=== PATIENT | female | born 1990 | race American Indian/Alaskan Native ===

== ENCOUNTER 2018-01-30 13:19 | Emergency (ER) | payer MEDICAID ==
--- NOTE | 2018-01-30 16:42 | Emergency Department Report ---
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 Patient has no past medical history. Patient states chest hurts with coughing and 2 days ago she fell palpitations while at work. She is taken out the symptoms was within normal improvement of symptoms. She also complains of bilateral ear pain. Patient denies recent travel, ED Review of Systems ROS: Stated complaint: CHEST PAIN/SORE THROAT/ VOMITING Other details as noted in HPI Constitutional: denies: chills, fever ENT: ear pain (bilateral), throat pain, congestion. denies: dental pain, hearing loss, epistaxis Respiratory: cough. denies: shortness of breath, wheezing Cardiovascular: chest pain (chest pain with cough). denies: palpitations Gastrointestinal: vomiting. denies: abdominal pain, nausea, diarrhea Skin: denies: rash, lesions Neurological: denies: headache, weakness, paresthesias Psychiatric: denies: anxiety, depression ED Past Medical Hx - Past Medical History Hx Hypertension: No Hx Heart Attack/AMI: No Hx Congestive Heart Failure: No Hx Diabetes: No Hx Deep Vein Thrombosis: No Hx Renal Disease: No Hx Sickle Cell Disease: No Hx Seizures: No Hx Asthma: No Hx COPD: No Hx HIV: No - Social History Smoking Status: Never Smoker Substance Use Type: None - Medications Home Medications: Home Medications Medication Instructions Recorded Confirmed Last Taken Type Valacyclovir HCl [valACYclovir] 500 mg PO DAILY 08/28/15 08/28/15 1 Day Ago History ~08/27/15 HYDROcodone/APAP 5-325 [[employer] [facility] 1 each PO Q6HR PRN #30 tablet 08/30/15 Unknown Rx 5/325] Ibuprofen [Motrin] 800 mg PO Q8HR PRN #30 tablet 08/30/15 Unknown Rx Vit Calc,Iron,Folic 1 each PO DAILY #30 tablet 08/30/15 Unknown Rx [ Vitamins] RX: Ferrous Sulfate [Feosol 325 MG 325 mg PO BID #60 tablet 08/30/15 Unknown Rx tab] Fluticasone [Flonase] 1 spray NS QDAY #1 bottle 01/30/18 Unknown Rx RX: Amoxicillin 500 mg PO BID #20 capsule 01/30/18 Unknown Rx RX: Benzonatate [Tessalon Perle] 100 mg PO TID PRN #20 capsule 01/30/18 Unknown Rx Minor Respiratory Exam - Exam General: Vital signs noted. No distress. Alert and acting appropriately. HEENT: Yes Pharyngeal Erythema (posterior pharynx erythema), Yes Moist Mucous Membranes, Yes Rhinorrhea (turbinates mildly congested with clear discharge), No Pharyngeal Exudates (Uvula midline), No Conjuctival Injection, No Frontal Tenderness, No Maxillary Tenderness Ear: Right TM Bulge, Right TM Erythema, Right EAC Pain, Neither EAC Discharge Neck: Yes Supple, No Adenopathy Lungs: Yes Good Air Exchange, No Wheezes, No Ronchi, No Stridor, No Cough, No Labored Respirations, No Retractions, No Use of Accessory Muscles, No Other Abnormal Lung Sounds Heart: Yes Regular, No Murmur Abdomen: Yes Normal Bowel Sounds, No Tenderness, No Peritoneal Signs Skin: No Rash, No Edema Neurologic: Alert and oriented, no deficits. Musculoskeletal: Unremarkable. ED Course Vital Signs 01/30/18 13:32 Temperature 98 F Pulse Rate 88 Respiratory 20 Rate Blood Pressure 163/101 O2 Sat by Pulse 99 Oximetry Vital Signs 01/30/18 01/30/18 13:32 18:49 Temperature 98 F Pulse Rate 88 85 Respiratory 20 16 Rate Blood Pressure 163/101 Blood Pressure 151/94 [Right] O2 Sat by Pulse 99 100 Oximetry ED Medical Decision Making - Radiology Data Radiology results: pending, report reviewed interpreted by me: Janet Webb - Medical Decision Making Patient is stable and was examined by me in the emergency room. Nontoxic appearing and stable. Blood pressure elevated on arrival. Reevaluation trending down. Chest x-ray obtained and dictated by Dr. Bauer with no acute findings. Physical assessment susceptible of otitis media of right ear. Start amoxicillin, Flonase, and benzonatate. Continue taking Tylenol or ibuprofen for pain. Discussed plan with patient and she agreed with plan. Discharged home in stable condition. Follow up with PCP in 24-72 hours. Critical care attestation.: If time is entered above; I have spent that time in minutes in the direct care of this critically ill patient, excluding procedure time. ED Disposition Clinical Impression: Acute pain of both ears, Cough in adult, Asymptomatic hypertension Otitis media Qualifiers: Otitis media type: suppurative Chronicity: acute Laterality: right Recurrence: not specified as recurrent Spontaneous tympanic membrane rupture: without spontaneous rupture Qualified Code(s): H66.001 - Acute suppurative otitis media without spontaneous rupture of ear drum, right ear Disposition: TO HOME OR SELFCARE Is pt being admited?: No Does the pt Need Aspirin: No Condition: Stable Instructions: Otitis Media (ED), DASH Eating Plan (ED), Hypertension (ED) Additional Instructions: Give Tylenol or ibuprofen for pain every 6-8 hours. Take antibiotics as prescribed to avoid recurrence of the ear infection. Avoid drinking alcohol while taking antibiotics and for up to 24 hours after completion. Avoid high altitudes, may worsen the pain during ear infection. If symptoms do not improve within 2 to 3 days, then follow up with primary care provider. Prescriptions: RX: Amoxicillin 500 mg PO BID #20 capsule RX: Benzonatate [Tessalon Perle] 100 mg PO TID PRN #20 capsule PRN Reason: Cough Fluticasone [Flonase] 1 spray NS QDAY #1 bottle Referrals: [facility] [Outside] - 3-5 Days [facility] [Outside] - 3-5 Days [facility] [Outside] - 3-5 Days Forms: Work/School Release Form(ED) Time of Disposition: 18:39 Print Language: MONTENEGRIN
[2018-01-30 18:50] VITALS: BP 151/94
--- NOTE | 2018-01-30 18:55 | XRay Report ---
FINAL REPORT PROCEDURE: Chest. TECHNIQUE: Frontal and lateral views. HISTORY: Cough and chest discomfort. COMPARISON: No prior studies are available for comparison. FINDINGS: The heart and mediastinum appear normal. The lungs are clear and well expanded. There are no pleural effusions. The soft tissues and regional skeleton are unremarkable. IMPRESSION: Normal study.
== END 2018-01-30 19:08 | disposition home or self-care (01) ==
LOC: ED 13:19
DX: H66.001 Acute suppurative otitis media without spontaneous rupture of ear drum, right ear (principal); H57.12 Ocular pain, left eye; R05 Cough; I10 Essential (primary) hypertension; J02.9 Acute pharyngitis, unspecified
CPT/HCPCS: 71046; 99283

== ENCOUNTER 2018-05-27 16:45 | Emergency (ER) | payer MEDICAID ==
[2018-05-27 16:53] VITALS: BP 157/90
[2018-05-27] MEDS ORDERED: PERCOCET 5/325 PO STA (17:16)
--- NOTE | 2018-05-27 17:22 | Emergency Department Report ---
ED ENT HPI - General Chief complaint: Dental/Oral Stated complaint: TOOTHACHE Time Seen by Provider: 05/27/18 17:15 Source: patient Mode of arrival: Ambulatory Limitations: No Limitations - History of Present Illness -: month(s) (1) Location: tooth # Severity: moderate Quality: aching, dull Consistency: constant Improves with: none Worsens with: position, eating, movement Context- Dental: history of dental caries, poor dental care Associated Symptoms: toothache. denies: pain with swallowing, hearing loss, discharge from ear, rhinorrhea - Related Data Home Medications Medication Instructions Recorded Confirmed Last Taken Valacyclovir HCl [valACYclovir] 500 mg PO DAILY 08/28/15 08/28/15 1 Day Ago ~08/27/15 Previous Rx's Medication Instructions Recorded Last Taken Type Ferrous Sulfate [Feosol 325 MG tab] 325 mg PO BID #60 tablet 08/30/15 Unknown Rx HYDROcodone/APAP 5-325 [[place] 1 each PO Q6HR PRN #30 tablet 08/30/15 Unknown Rx 5/325] Ibuprofen [Motrin] 800 mg PO Q8HR PRN #30 tablet 08/30/15 Unknown Rx Vit Calc,Iron,Folic 1 each PO DAILY #30 tablet 08/30/15 Unknown Rx [ Vitamins] Amoxicillin 500 mg PO BID #20 capsule 01/30/18 Unknown Rx Benzonatate [Tessalon Perle] 100 mg PO TID PRN #20 capsule 01/30/18 Unknown Rx Fluticasone [Flonase] 1 spray NS QDAY #1 bottle 01/30/18 Unknown Rx Cyclobenzaprine [Flexeril] 10 mg PO TID PRN #12 tablet 04/22/18 Unknown Rx Ibuprofen [Motrin] 600 mg PO Q8H PRN #12 tablet 04/22/18 Unknown Rx Amoxicillin 500 mg PO TID #21 capsule 05/27/18 Unknown Rx Chlorhexidine Mouthwash [Peridex] 15 ml MM BID #473 bottle 05/27/18 Unknown Rx Ketorolac [Toradol] 10 mg PO Q6H PRN #15 tablet 05/27/18 Unknown Rx Lidocaine Viscous 2% 15 ml MM Q4H #240 udc 05/27/18 Unknown Rx Allergies Allergy/AdvReac Type Severity Reaction Status Date / Time No Known Allergies Allergy Verified 01/30/18 13:32 ED Dental HPI - General Chief complaint: Dental/Oral Stated complaint: TOOTHACHE Time Seen by Provider: 05/27/18 17:15 Source: patient Mode of arrival: Ambulatory Limitations: No Limitations - Related Data Home Medications Medication Instructions Recorded Confirmed Last Taken Valacyclovir HCl [valACYclovir] 500 mg PO DAILY 08/28/15 08/28/15 1 Day Ago ~08/27/15 Previous Rx's Medication Instructions Recorded Last Taken Type Ferrous Sulfate [Feosol 325 MG tab] 325 mg PO BID #60 tablet 08/30/15 Unknown Rx HYDROcodone/APAP 5-325 [[place] 1 each PO Q6HR PRN #30 tablet 08/30/15 Unknown Rx 5/325] Ibuprofen [Motrin] 800 mg PO Q8HR PRN #30 tablet 08/30/15 Unknown Rx Vit Calc,Iron,Folic 1 each PO DAILY #30 tablet 08/30/15 Unknown Rx [ Vitamins] Amoxicillin 500 mg PO BID #20 capsule 01/30/18 Unknown Rx Benzonatate [Tessalon Perle] 100 mg PO TID PRN #20 capsule 01/30/18 Unknown Rx Fluticasone [Flonase] 1 spray NS QDAY #1 bottle 01/30/18 Unknown Rx Cyclobenzaprine [Flexeril] 10 mg PO TID PRN #12 tablet 04/22/18 Unknown Rx Ibuprofen [Motrin] 600 mg PO Q8H PRN #12 tablet 04/22/18 Unknown Rx Amoxicillin 500 mg PO TID #21 capsule 05/27/18 Unknown Rx Chlorhexidine Mouthwash [Peridex] 15 ml MM BID #473 bottle 05/27/18 Unknown Rx Ketorolac [Toradol] 10 mg PO Q6H PRN #15 tablet 05/27/18 Unknown Rx Lidocaine Viscous 2% 15 ml MM Q4H #240 udc 05/27/18 Unknown Rx Allergies Allergy/AdvReac Type Severity Reaction Status Date / Time No Known Allergies Allergy Verified 01/30/18 13:32 ED Review of Systems ROS: Stated complaint: TOOTHACHE Other details as noted in HPI Constitutional: denies: chills, fever Eyes: denies: eye pain, eye discharge, vision change ENT: dental pain. denies: ear pain, throat pain Respiratory: denies: cough, shortness of breath, wheezing Cardiovascular: denies: chest pain, palpitations Endocrine: no symptoms reported Gastrointestinal: denies: abdominal pain, nausea, diarrhea Genitourinary: denies: urgency, dysuria, discharge Musculoskeletal: denies: back pain, joint swelling, arthralgia Skin: denies: rash, lesions Neurological: denies: headache, weakness, paresthesias Psychiatric: denies: anxiety, depression Hematological/Lymphatic: denies: easy bleeding, easy bruising ED Past Medical Hx - Past Medical History Previous Medical History?: No Hx Hypertension: No Hx Heart Attack/AMI: No Hx Congestive Heart Failure: No Hx Diabetes: No Hx Deep Vein Thrombosis: No Hx Renal Disease: No Hx Sickle Cell Disease: No Hx Seizures: No Hx Asthma: No Hx COPD: No Hx HIV: No - Surgical History Past Surgical History?: Yes Additional Surgical History: x 1 - Social History Smoking Status: Never Smoker Substance Use Type: None - Medications Home Medications: Home Medications Medication Instructions Recorded Confirmed Last Taken Type Valacyclovir HCl [valACYclovir] 500 mg PO DAILY 08/28/15 08/28/15 1 Day Ago History ~08/27/15 Ferrous Sulfate [Feosol 325 MG tab] 325 mg PO BID #60 tablet 08/30/15 Unknown Rx HYDROcodone/APAP 5-325 [[place] 1 each PO Q6HR PRN #30 tablet 08/30/15 Unknown Rx 5/325] Ibuprofen [Motrin] 800 mg PO Q8HR PRN #30 tablet 08/30/15 Unknown Rx Vit Calc,Iron,Folic 1 each PO DAILY #30 tablet 08/30/15 Unknown Rx [ Vitamins] Amoxicillin 500 mg PO BID #20 capsule 01/30/18 Unknown Rx Benzonatate [Tessalon Perle] 100 mg PO TID PRN #20 capsule 01/30/18 Unknown Rx Fluticasone [Flonase] 1 spray NS QDAY #1 bottle 01/30/18 Unknown Rx Cyclobenzaprine [Flexeril] 10 mg PO TID PRN #12 tablet 04/22/18 Unknown Rx Ibuprofen [Motrin] 600 mg PO Q8H PRN #12 tablet 04/22/18 Unknown Rx Amoxicillin 500 mg PO TID #21 capsule 05/27/18 Unknown Rx Chlorhexidine Mouthwash [Peridex] 15 ml MM BID #473 bottle 05/27/18 Unknown Rx Ketorolac [Toradol] 10 mg PO Q6H PRN #15 tablet 05/27/18 Unknown Rx Lidocaine Viscous 2% 15 ml MM Q4H #240 udc 05/27/18 Unknown Rx ED Physical Exam - General Limitations: No Limitations General appearance: alert, in no apparent distress - Head Head exam: Present: atraumatic, normocephalic - Eye Eye exam: Present: normal appearance - ENT ENT exam: Present: mucous membranes moist, other (dental pain to tooth 1 and 32. errosion noted with adjacent redness and sweling. no discharge) - Neck Neck exam: Present: normal inspection - Respiratory Respiratory exam: Present: normal lung sounds bilaterally. Absent: respiratory distress - Cardiovascular Cardiovascular Exam: Present: regular rate, normal rhythm. Absent: systolic murmur, diastolic murmur, rubs, gallop - GI/Abdominal GI/Abdominal exam: Present: soft, normal bowel sounds - Extremities Exam Extremities exam: Present: normal inspection - Back Exam Back exam: Present: normal inspection - Neurological Exam Neurological exam: Present: alert, oriented X3 - Psychiatric Psychiatric exam: Present: normal affect, normal mood - Skin Skin exam: Present: warm, dry, intact, normal color. Absent: rash ED Course Vital Signs 05/27/18 16:50 Temperature 98.6 F Pulse Rate 75 Respiratory 16 Rate Blood Pressure 157/90 O2 Sat by Pulse 100 Oximetry Critical care attestation.: If time is entered above; I have spent that time in minutes in the direct care of this critically ill patient, excluding procedure time. ED Disposition Clinical Impression: Dentalgia Disposition: DC- TO HOME OR SELFCARE Is pt being admited?: No Does the pt Need Aspirin: No Condition: Stable Prescriptions: Amoxicillin 500 mg PO TID #21 capsule Chlorhexidine Mouthwash [Peridex] 15 ml MM BID #473 bottle Ketorolac [Toradol] 10 mg PO Q6H PRN #15 tablet PRN Reason: Pain Lidocaine Viscous 2% 15 ml MM Q4H #240 udc Referrals: PRIMARY CARE, [Primary Care Provider] - 3-5 Days [facility] [Outside] - 3-5 Days
== END 2018-05-27 17:33 | disposition home or self-care (01) ==
LOC: ED 16:45
DX: K08.89 Other specified disorders of teeth and supporting structures (principal)
CPT/HCPCS: 99282

== ENCOUNTER 2020-02-29 16:05 | Emergency (ER) | payer MEDICAID ==
[2020-02-29 21:33] LABS: Bacteria,Urine 1+ /HPF (Negative); Bilirubin,Urine NEG (Negative); Blood,Urine SM (Negative); Color,Urine Yellow (Yellow); Mucus,Urine FEW /HPF; Protein,Urine <15 mg/dL mg/dL (Negative); Urobilinogen,Urine < 2.0 mg/dL (<2.0)
[2020-02-29 21:35] LABS: HCG Qualitative,Urine Negative (Negative)
--- NOTE | 2020-02-29 22:24 | Emergency Department Report ---
ED Female HPI - General Chief complaint: Abdominal Pain Stated complaint: lower abd pain Time Seen by Provider: 02/29/20 22:21 Source: patient Mode of arrival: Ambulatory Limitations: No Limitations - History of Present Illness Initial comments: The patient was evaluated in the emergency department for symptoms described in the history of present illness. He/she was evaluated in the context of the global COVID-19 pandemic, which necessitated consideration that the patient might be at risk for infection with the virus that causes COVID-19. Instit utional protocols and algorithms that pertain to the evaluation of patients at risk for COVID-19 are in a state of rapid change based on information released by regulatory bodies including the CDC and federal and state organizations. These policies and algorithms were followed during the patient's care in the emergency department. Please note that these policies, procedures and recommendations changed on a rapid basis. 29-year-old morbid obese -[place] female presents to the emergency room complaining of lower abdominal pain. Patient denies any vaginal bleeding no vomiting diarrhea or . Patient reports that her last menstrual period was 02/18/2020 she is 1 para 1. Patient denies any urinary urgency frequency. She does report her boyfriend stated that he tested positive for trichomonas. Patient states she currently takes no meds no known drug allergies and has no past medical history. MD Complaint: possible STD Onset/Timin -: days(s) Location: suprapubic Severity scale (0 -10): 7 Quality: dull Consistency: intermittent Improves with: none Worsens with: none Are you Now?: No Last Menstrual Period: 02/18/20 EDC: 11/24/20 Associated Symptoms: vaginal discharge. denies: vaginal bleeding, nausea/vomiting, fever/chills, headaches, loss of appetite, dysuria, hematuria, shortness of breath, weakness - Related Data Home Medications Medication Instructions Recorded Confirmed Last Taken Valacyclovir HCl [valACYclovir] 500 mg PO DAILY 08/28/15 08/28/15 1 Day Ago ~08/27/15 Previous Rx's Medication Instructions Recorded Last Taken Type Ferrous Sulfate [Feosol 325 MG tab] 325 mg PO BID #60 tablet 08/30/15 Unknown Rx HYDROcodone/APAP 5-325 [[place] 1 each PO Q6HR PRN #30 tablet 08/30/15 Unknown Rx 5/325] Ibuprofen [Motrin] 800 mg PO Q8HR PRN #30 tablet 08/30/15 Unknown Rx Vit Calc,Iron,Folic 1 each PO DAILY #30 tablet 08/30/15 Unknown Rx [ Vitamins] Amoxicillin 500 mg PO BID #20 capsule 01/30/18 Unknown Rx Benzonatate [Tessalon Perle] 100 mg PO TID PRN #20 capsule 01/30/18 Unknown Rx Fluticasone [Flonase] 1 spray NS QDAY #1 bottle 01/30/18 Unknown Rx Cyclobenzaprine [Flexeril] 10 mg PO TID PRN #12 tablet 04/22/18 Unknown Rx Ibuprofen [Motrin] 600 mg PO Q8H PRN #12 tablet 04/22/18 Unknown Rx Amoxicillin 500 mg PO TID #21 capsule 05/27/18 Unknown Rx Chlorhexidine Mouthwash [Peridex] 15 ml MM BID #473 bottle 05/27/18 Unknown Rx Ketorolac [Toradol] 10 mg PO Q6H PRN #15 tablet 05/27/18 Unknown Rx Lidocaine Viscous 2% 15 ml MM Q4H #240 udc 05/27/18 Unknown Rx Azithromycin 1,000 mg PO ONCE #2 tablet 02/29/20 Unknown Rx Doxycycline Hyclate [Doxycycline 100 mg PO Q12HR 10 Days #20 tab 02/29/20 Unknown Rx Hyclate TAB] metroNIDAZOLE [Flagyl] 500 mg PO Q12HR 7 Days #14 tab 02/29/20 Unknown Rx Allergies Allergy/AdvReac Type Severity Reaction Status Date / Time No Known Allergies Allergy Verified 01/30/18 13:32 ED Review of Systems ROS: Stated complaint: lower abd pain Other details as noted in HPI Comment: All other systems reviewed and negative ED Past Medical Hx - Past Medical History Previous Medical History?: No Hx Hypertension: No Hx Heart Attack/AMI: No Hx Congestive Heart Failure: No Hx Diabetes: No Hx Deep Vein Thrombosis: No Hx Renal Disease: No Hx Sickle Cell Disease: No Hx Seizures: No Hx Asthma: No Hx COPD: No Hx HIV: No - Surgical History Past Surgical History?: No Additional Surgical History: x 1 - Social History Smoking Status: Never Smoker Substance Use Type: None - Medications Home Medications: Home Medications Medication Instructions Recorded Confirmed Last Taken Type Valacyclovir HCl [valACYclovir] 500 mg PO DAILY 08/28/15 08/28/15 1 Day Ago History ~08/27/15 Ferrous Sulfate [Feosol 325 MG tab] 325 mg PO BID #60 tablet 08/30/15 Unknown Rx HYDROcodone/APAP 5-325 [[place] 1 each PO Q6HR PRN #30 tablet 08/30/15 Unknown Rx 5/325] Ibuprofen [Motrin] 800 mg PO Q8HR PRN #30 tablet 08/30/15 Unknown Rx Vit Calc,Iron,Folic 1 each PO DAILY #30 tablet 08/30/15 Unknown Rx [ Vitamins] Amoxicillin 500 mg PO BID #20 capsule 01/30/18 Unknown Rx Benzonatate [Tessalon Perle] 100 mg PO TID PRN #20 capsule 01/30/18 Unknown Rx Fluticasone [Flonase] 1 spray NS QDAY #1 bottle 01/30/18 Unknown Rx Cyclobenzaprine [Flexeril] 10 mg PO TID PRN #12 tablet 04/22/18 Unknown Rx Ibuprofen [Motrin] 600 mg PO Q8H PRN #12 tablet 04/22/18 Unknown Rx Amoxicillin 500 mg PO TID #21 capsule 05/27/18 Unknown Rx Chlorhexidine Mouthwash [Peridex] 15 ml MM BID #473 bottle 05/27/18 Unknown Rx Ketorolac [Toradol] 10 mg PO Q6H PRN #15 tablet 05/27/18 Unknown Rx Lidocaine Viscous 2% 15 ml MM Q4H #240 udc 05/27/18 Unknown Rx Azithromycin 1,000 mg PO ONCE #2 tablet 02/29/20 Unknown Rx Doxycycline Hyclate [Doxycycline 100 mg PO Q12HR 10 Days #20 tab 02/29/20 Unknown Rx Hyclate TAB] metroNIDAZOLE [Flagyl] 500 mg PO Q12HR 7 Days #14 tab 02/29/20 Unknown Rx ED Physical Exam - General Limitations: No Limitations General appearance: alert, in no apparent distress, obese - Head Head exam: Present: atraumatic, normocephalic - Eye Eye exam: Present: normal appearance - ENT ENT exam: Present: mucous membranes moist - Respiratory Respiratory exam: Absent: accessory muscle use - GI/Abdominal GI/Abdominal exam: Present: tenderness (Suprapubic) - External exam: Present: normal external exam Speculum exam: Present: vaginal discharge (Greenish-yellow) Bi-manual exam: Present: normal bi-manual exam. Absent: adnexal tenderness, adnexal mass - Extremities Exam Extremities exam: Present: normal inspection, full ROM - Back Exam Back exam: Present: normal inspection, full ROM - Neurological Exam Neurological exam: Present: alert, oriented X3 - Psychiatric Psychiatric exam: Present: normal affect, normal mood - Skin Skin exam: Present: warm, dry, intact, normal color. Absent: rash ED Course Vital Signs 02/29/20 02/29/20 16:09 21:10 Temperature 98.3 F Pulse Rate 102 H Respiratory 18 18 Rate Blood Pressure 152/81 O2 Sat by Pulse 98 98 Oximetry ED Medical Decision Making - Medical Decision Making 29-year-old morbid obese -[place] female presents to the emergency room complaining of lower abdominal pain. Patient denies any vaginal bleeding no vomiting diarrhea or . Patient reports that her last menstrual period was 02/18/2020 she is 1 para 1. Patient denies any urinary urgency frequency. She does report her boyfriend stated that he tested positive for trichomonas. Patient states she currently takes no meds no known drug allergies and has no past medical history. Critical care attestation.: If time is entered above; I have spent that time in minutes in the direct care of this critically ill patient, excluding procedure time. ED Disposition Clinical Impression: Severely overweight, Trichomonas vaginalis infection, Bacterial vaginosis, Exposure to STD Disposition: DC-01 TO HOME OR SELFCARE Is pt being admited?: No Does the pt Need Aspirin: No Condition: Stable Instructions: Abdominal Pain (ED), Bacterial Vaginosis (ED), Trichomoniasis (ED), Sexually Transmitted Diseases (ED), Metronidazole (By mouth), Azithromycin (By mouth), Doxycycline (By mouth) Additional Instructions: Your microbiology came back with trichomonas bacterial vaginosis. You are being treated for gonorrhea, chlamydia, bacterial vaginosis and trichomonas. You are to refrain from intercourse until you and your partner has been treated this should be done prior to intercourse. I recommend you to follow-up at the health department for HIV test herpes syphilis and hepatitis. Be sure to eat and dri nk plenty of fluids with your medication. Prescriptions: Azithromycin 1,000 mg PO ONCE #2 tablet Doxycycline Hyclate [Doxycycline Hyclate TAB] 100 mg PO Q12HR 10 Days #20 tab metroNIDAZOLE [Flagyl] 500 mg PO Q12HR 7 Days #14 tab Referrals: RADHIKA ESPINOZA MD [Primary Care Provider] - 3-5 Days [facility] [Outside] - 3-5 Days Forms: STI Treatment and Prevention
[2020-02-29] MEDS ORDERED: LIDOCAINE-MPF (1%) 10 MG/1 ML VIAL 5 ML INFILTRATI ONE (22:52)
[2020-03-01 00:17] VITALS: BP 138/78
== END 2020-02-29 23:50 | disposition home or self-care (01) ==
LOC: ED 16:05
DX: A59.01 Trichomonal vulvovaginitis (principal); N76.0 Acute vaginitis; B96.89 Other specified bacterial agents as the cause of diseases classified elsewhere; E66.3 Overweight; Z20.2 Contact with and (suspected) exposure to infections with a predominantly sexual mode of transmission; Z68.43 Body mass index [BMI] 50.0-59.9, adult; Z98.890 Other specified postprocedural states; Z79.1 Long term (current) use of non-steroidal anti-inflammatories (NSAID); Z79.2 Long term (current) use of antibiotics; Z79.899 Other long term (current) drug therapy
CPT/HCPCS: 81001; 81025; 87210; 87591; 96372; 99284; J0696